=== PATIENT | female | born 1990 | race Caucasian/White ===

== ENCOUNTER 2022-09-26 17:20 | Emergency (ER) | payer OTHER ==
[~2022-09-26] VITALS: Ht 157.5 cm; Wt 72.7 kg
[2022-09-26 19:35] LABS: COVID AG,FIA SOURCE NASOPHARYNGEAL
[2022-09-26 20:23] LABS: INFLUENZA TYPE A NEGATIVE FOR TYPE A (NEGATIVE); INFLUENZA TYPE B NEGATIVE FOR TYPE B (NEGATIVE)
[2022-09-26 22:54] VITALS: BP 127/74
== END 2022-09-26 22:00 | disposition home or self-care (01) ==
LOC: EMS 17:55
DX: J06.9 Acute upper respiratory infection, unspecified (principal); Z20.822 Contact with and (suspected) exposure to COVID-19
CPT/HCPCS: 87430; 87804; 99283